=== PATIENT | female | born 1995 | race Caucasian/White ===

== ENCOUNTER → 2020-09-30 | Outpatient (CLI) | payer OTHER, MEDICAID ==
--- NOTE | 2020-09-30 17:19 | Diagnostic Imaging Report ---
INDICATION: Survey. TECHNIQUE: Multiple real-time grayscale images were obtained over the gravid uterus. COMPARISON: None FINDINGS: There is a single live intrauterine of 20 weeks 4 days +/- 2 weeks. Cardiac activity and motion are seen. No abnormality is seen at this time. Biometrical measurements are as follows: Biparietal 4.83 cm, age 20 weeks 5 days. Head circumference 18.42 cm, age 20 weeks 6 days. Abdominal circumference 15.74 cm, age 21 weeks 0 days. Femur length 3.08 cm, age 19 weeks 4 days. Sonographic estimate age: 20 weeks 4 days. Sonographic estimated date of delivery: 02/13/2021. Estimated Weight: 347 gm (+/- 51 gm). LMP percentile: 40%. heart rate: 134 beats per minute. number: 1 of 1. IMPRESSION: Current cervical length is 5.6 cm. The cervix is closed. Dictated by: Dictated on workstation # [id number]
== END ==
LOC: RAD 15:00
PROVIDERS: ATTEND Obstetrics & Gynecology
DX: Z34.92 Encounter for supervision of normal pregnancy, unspecified, second trimester (principal); Z3A.20 20 weeks gestation of pregnancy
CPT/HCPCS: 76805

== ENCOUNTER → 2020-10-15 | Outpatient (CLI) | payer OTHER, MEDICAID | LOC: CARD 11:45 | PROVIDERS: ATTEND Obstetrics & Gynecology | DX: R00.2 Palpitations (principal); R55 Syncope and collapse | CPT/HCPCS: 93005; 93225; 93226 ==

== ENCOUNTER 2021-01-13 15:30 | Outpatient (CLI) | payer OTHER, MEDICAID ==
[~2021-01-13] VITALS: Ht 167.7 cm; Wt 101.6 kg
[2021-01-13 15:54] VITALS: BP 132/82
[2021-01-13 15:54] LABS: BILIRUBIN,URINE NEGATIVE (NEGATIVE); CLARITY,URINE CLEAR; COLOR,URINE YELLOW; GLUCOSE, URINE (UA) TRACE (NEGATIVE); KETONES,URINE NEGATIVE (NEGATIVE); LEUKOCYTE ESTERASE ,URINE TRACE (NEGATIVE); NITRITE,URINE NEGATIVE (NEGATIVE); PROTEIN,URINE TRACE (NEGATIVE)
[2021-01-13 16:03] LABS: BACTERIA,URINE MODERATE /HPF; YEAST,URINE FEW /HPF
[2021-01-13] MEDS ORDERED: DOXY25TA56 PO (16:07)
[2021-01-13] MEDS ORDERED: VILA20TA PO (16:07)
--- NOTE | 2021-01-14 08:19 | Physician Query-Final Dx ---
[facility] 01/14/21 0819: Clinic Account Progress/Dx Physician Query: Please give diagnosis Please include # weeks gestation Date of Service Jan 13, 2021 at 15:30 JEWEL KOEHLER DO 01/14/21 0840: Clinic Account Progress/Dx DIAGNOSIS: Diagnosis 35 week IUP Back Pain and hip pain [facility] Jan 14, 2021 08:19 JEWEL KOEHLER DO Jan 14, 2021 08:40
== END 2021-01-13 17:03 | disposition home or self-care (01) ==
LOC: WSo 15:30
PROVIDERS: ATTEND Obstetrics & Gynecology
DX: O26.893 Other specified pregnancy related conditions, third trimester (principal); M54.9 Dorsalgia, unspecified; M25.559 Pain in unspecified hip; Z3A.35 35 weeks gestation of pregnancy
CPT/HCPCS: 81000; G0463; 99213

== ENCOUNTER → 2021-01-16 | Outpatient (CLI) | payer OTHER, MEDICAID ==
[~2021-01-16] MED LIST: DOXY25TA56 PO; VILA20TA PO
--- NOTE | 2021-01-16 17:42 | Diagnostic Imaging Report ---
INDICATION: Excessive growth. COMPARISON: 09/30/2020. TECHNIQUE: Multiple real-time grayscale images were obtained over the gravid uterus. FINDINGS: Single live intrauterine is identified. heart rate is documented at 138 bpm. Based on size measurements from today's exam, estimated weight is 3.5 kg +/- 518 g (7 pounds, 13 ounces). This is consistent with the 98th percentile. Please see below for additional measurements and details. Biometrical measurements are as follows: Biparietal 9.23 cm, age 37 weeks 4 days. Head circumference 34.36 cm, age 39 weeks 5 days. Abdominal circumference 35.29 cm, age 39 weeks 2 days. Femur length 7.28 cm, age 37 weeks 2 days. Sonographic estimate age: 38 weeks 4 days. Sonographic estimated date of delivery: 01/26/2021. Estimated Weight: 3544 gm (+/- 518 gm). LMP percentile: 98%. heart rate: 138 beats per minute. number: 1 of 1. IMPRESSION: Size and dates with estimated weight as described above. Again, this results in estimated 98 percentile for growth. Dictated by: Dictated on workstation # [id number]
== END ==
LOC: RAD 14:53
PROVIDERS: ATTEND Obstetrics & Gynecology
DX: O36.63X1 Maternal care for excessive fetal growth, third trimester, fetus 1 (principal); Z3A.38 38 weeks gestation of pregnancy
CPT/HCPCS: 76816

== ENCOUNTER → 2021-01-23 | Outpatient (CLI) | payer OTHER, MEDICAID | LOC: LABNPT 11:34 | PROVIDERS: ATTEND Obstetrics & Gynecology | DX: R03.0 Elevated blood-pressure reading, without diagnosis of hypertension (principal) | CPT/HCPCS: 82570; 84156 ==

== ENCOUNTER 2021-02-01 14:08 | Outpatient (CLI) | payer OTHER, MEDICAID ==
[~2021-02-01] VITALS: Ht 167.7 cm; Wt 103.7 kg
[2021-02-01] VITALS (12 sets, daily range): BP systolic 117–133; BP diastolic 72–85
[2021-02-01 15:32] LABS: BILIRUBIN,URINE NEGATIVE (NEGATIVE); CLARITY,URINE SL CLOUDY; COLOR,URINE YELLOW; GLUCOSE, URINE (UA) NEGATIVE (NEGATIVE); KETONES,URINE NEGATIVE (NEGATIVE); LEUKOCYTE ESTERASE ,URINE NEGATIVE (NEGATIVE); NITRITE,URINE NEGATIVE (NEGATIVE); PH,URINE 6.5 (5-9); PROTEIN,URINE NEGATIVE (NEGATIVE)
--- NOTE | 2021-02-01 15:33 | OB Triage Report ---
Standard Progress Note Progress Notes/Assess & Plan Date Seen by a Provider: Feb 01, 2021 Time Seen by a Provider: 15:33 Expected Date of Delivery: Feb 14, 2021 Gestational Age in Weeks: 38 Gestational Age in Days: 1 LMP/MASOOD Comment: MASOOD: 02/14/2021 Progress/Assessment & Plan HPI: 25 yo with IUP at 38w1 day who presents for reported mildly elevated BP at home with SBP in 140s. Notes mild 1/10 MEJÍA x3 days. Took Tylenol once without notable improvement in MEJÍA. Denies CP, SOB, palpitations or vision abnormalities, although did have episode of spots in vision earlier in the past week. She denies contractions, LOF, vaginal bleeding, RUQ abdominal pain. She is feeling good movements. Her care is with Dr. Snow, and her is complicated by hx of gHTN in G1. PreE labs were obtained in clinic on 01/23/21 due pt report of MEJÍA and spots in vision, but were all wnl. BPs in clinic have been in the normal range. PE: Vital Signs 02/01/21 02/01/21 15:00 17:17 Temp 36.6 Pulse 90 Resp 18 B/P (MAP) 119/72 (88) Pulse Ox 98 O2 Delivery Room Air Gen: in no apparent distress, resting comfortably in bed Heart: normal rate and peripheral perfusion, no edema Resp: normal effort, symmetric chest rise FHR: 150bpm, mod abdoul, + accels, - decels Maria Antonia: No contractions Labs Laboratory Tests Test 02/01/21 15:18 Range/Units Urine Color YELLOW Urine Clarity SL CLOUDY Urine pH 6.5 5-9 Urine Specific [place] 1.015 L 1.016-1.022 Urine Protein 10 6-12 MG/DL Urine Glucose (UA) NEGATIVE NEGATIVE Urine Ketones NEGATIVE NEGATIVE Urine Nitrite NEGATIVE NEGATIVE Urine Bilirubin NEGATIVE NEGATIVE Urine Urobilinogen 0.2 < = 1.0 MG/DL Urine Leukocyte Esterase NEGATIVE NEGATIVE Urine RBC (Auto) NEGATIVE NEGATIVE Urine RBC NONE /HPF Urine WBC NONE /HPF Urine Squamous Epithelial Cells 2-5 /HPF Urine Crystals NONE /LPF Urine Bacteria NEGATIVE /HPF Urine Casts NONE /LPF Urine Mucus NEGATIVE /LPF Urine Culture Indicated NO Urine Creatinine 66 30-125 MG/DL Urine Protein/Creatinine Ratio 0.15 A/P: 25 yo with IUP at 38w1d who presents for PIH evaluation secondary to reported elevated home BP and MEJÍA - BPs cycled in triage x3hr wnl - UPC wnl - MEJÍA resolved with PO Tylenol - Evaluation negative for PIH at this time. reassurance provided - Discharge home. Home BPs check instructions provided - Continue outpatient follow-up as scheduled Diagnosis/Problems Diagnosis/Problems (1) 38 weeks gestation of Status: Acute SHIRA PERDUE MD Feb 01, 2021 15:33
[2021-02-01] MEDS ORDERED: PNV11TAB5 PO (15:40)
[2021-02-01] MEDS ORDERED: FERR-84 PO (15:40)
[2021-02-01] MEDS ORDERED: LORA10CA PO (15:40)
[2021-02-01] MEDS ORDERED: ACETAMINOPHEN 500 MG TAB (TYLENOL) PO ONE (15:45)
[2021-02-01 15:47] LABS: BACTERIA,URINE NEGATIVE /HPF
[2021-02-01] MEDS ORDERED: ACETAMINOPHEN 500 MG TAB (TYLENOL) ONE (15:54)
== END 2021-02-01 17:41 | disposition home or self-care (01) ==
LOC: WSo 14:08 → LDRP 14:09 → WSo 17:41
PROVIDERS: ATTEND Obstetrics & Gynecology
DX: O13.3 Gestational [pregnancy-induced] hypertension without significant proteinuria, third trimester (principal); Z3A.38 38 weeks gestation of pregnancy
CPT/HCPCS: 81000; 82570; 84156; G0463; 99214

== ENCOUNTER 2021-02-11 07:29 | Inpatient (IN) | payer OTHER, MEDICAID ==
[2021-02-11] VITALS (52 sets, daily range): BP systolic 76–163; BP diastolic 45–678
[~2021-02-11 07:29] MED LIST changes: +FERR-84 PO; +LORA10CA PO; +PNV11TAB5 PO
[2021-02-11] MEDS ORDERED: MINERAL OIL CONCENTRATE 99.9% 15 ML UDC TOP PRN (07:45)
[2021-02-11] MEDS ORDERED: LIDOCAINE/EPI 2% 1:200,00 (XYLOCAINE) 20 ML VIAL INJ PRN (07:45)
[2021-02-11 08:22] LABS: BASOPHILS % (AUTO) 1 % (0-10); EOSINOPHILS # (AUTO) 0.1 10^3/uL (0.0-0.3); EOSINOPHILS % (AUTO) 1 % (0-10); HEMATOCRIT 30 % (35-52); HEMOGLOBIN 9.4 g/dL (11.5-16.0); LYMPHOCYTES % (AUTO) 25 % (12-44); MEAN CORPUSCULAR HEMOGLOBIN 23 pg (25-34); MEAN CORPUSCULAR HGB CONC 31 g/dL (32-36); MEAN CORPUSCULAR VOLUME 75 fL (80-99); MEAN PLATELET VOLUME 10.4 fL (9.0-12.2); MONOCYTES # (AUTO) 0.5 10^3/uL (0.0-1.0); MONOCYTES % (AUTO) 7 % (0-12); NEUTROPHILS # (AUTO) 5.4 10^3/uL (1.8-7.8); NEUTROPHILS % (AUTO) 67 % (42-75); PLATELET COUNT 338 10^3/uL (130-400); WHITE BLOOD COUNT 8.1 10^3/uL (4.3-11.0)
[2021-02-11] MEDS ORDERED: AMPICILLIN FOR IV USE 2,000 MG in WATER (STERILE) FOR INJECTION 14.8 ML IV SCH (08:24)
[2021-02-11] MEDS ORDERED: WATER (STERILE) FOR INJECTION 20 ML ONE (08:30)
[2021-02-11] MEDS ORDERED: AMPICILLIN 2,000 MG/14.8 ML (IV USE) ONE (08:30)
[2021-02-11] MEDS: D5 LR IV SOLUTION 1,000 ML IV SCH ×3 (08:53→23:00)
[2021-02-11 09:00] LABS: BILIRUBIN,URINE NEGATIVE (NEGATIVE); CLARITY,URINE CLEAR; COLOR,URINE YELLOW; GLUCOSE, URINE (UA) NEGATIVE (NEGATIVE); KETONES,URINE NEGATIVE (NEGATIVE); LEUKOCYTE ESTERASE ,URINE 1+ (NEGATIVE); NITRITE,URINE NEGATIVE (NEGATIVE); PH,URINE 6.5 (5-9); PROTEIN,URINE NEGATIVE (NEGATIVE)
[2021-02-11 09:15] LABS: RBC,URINE RARE /HPF
[2021-02-11 09:16] LABS: BACTERIA,URINE FEW /HPF; YEAST,URINE FEW /HPF
[2021-02-11] MEDS ORDERED: ACETAMINOPHEN 500 MG TAB (TYLENOL) PO PRN (09:30)
[2021-02-11] MEDS ORDERED: fentaNYL INJ 100 MCG/2 ML AMP IVP PRN (12:45)
[2021-02-11] MEDS ORDERED: OXYTOCIN PRE-MIX DRIP 500 ML IV SCH (12:45)
[2021-02-11] MEDS: AMPICILLIN FOR IV USE 1,000 MG in WATER (STERILE) FOR INJECTION 7.4 ML IV SCH ×3 (13:08→20:32)
[2021-02-11] MEDS ORDERED: fentaNYL 2 mcg/ml BUPIVA 0.125 100 ML ONE (13:30)
[2021-02-11] MEDS ORDERED: BUPIVACAINE 0.25% 30 ML (SENSORCAINE) VIAL ONE (13:39)
[2021-02-11] MEDS ORDERED: fentaNYL INJ 100 MCG/2 ML AMP ONE (13:40)
[2021-02-11] MEDS ORDERED: EPIDURAL (fentaNYL 2 MCG/ML BUPIVA 0.125%)100 ML BAG EPI PRN (15:15)
[2021-02-11] MEDS ORDERED: METOCLOPRAMIDE INJ 10 MG/2 ML (REGLAN) IV PRN (15:15)
[2021-02-11] MEDS ORDERED: LACTATED RINGERS 1,000 ML IV SCH (15:15)
[2021-02-11] MEDS ORDERED: NALOXONE 0.4 MG/ML 1 ML (NARCAN) VIAL IV PRN ×3 (15:15→17:30)
[2021-02-11] MEDS ORDERED: ONDANSETRON 4 MG/2 ML (SDV) Z0FRAN IV PRN (15:15)
[2021-02-11] MEDS ORDERED: fentaNYL 2 mcg/ml BUPIVA 0.125 100 ML EPI PRN (15:15)
[2021-02-11] MEDS ORDERED: diphenhydrAMINE 50 MG/ML INJ (BENADRYL) IV PRN (15:15)
[2021-02-11] MEDS ORDERED: LIDOCAINE/EPI 2% 1:200,00 (XYLOCAINE) 10 ML VIAL ONE (16:37)
--- NOTE | 2021-02-11 17:24 | History & Physical-OB ---
OB - Chief Complaint & HPI Date/Time Date of Admission: Date of Admission: Feb 11, 2021 at 07:29 Date seen by a Provider: Feb 11, 2021 Time Seen by a Provider: 08:00 Chief Complaint/History OB-Reason for Admission/Chief: Medical Complication (elevated blood pressures without preeclampsia) Hx : 3 Hx Para: 2 Expected Date of Delivery: Feb 14, 2022 Gestational Age in Weeks: 39 Gestational Age in Days: 4 Indication for induction: medical complication Other reason for admission: Patient has had labile blood pressure, but she has had increase in headaches, so plan induction. Has history of spinal headache after epidural requiring blood patch so she is unsure if she wishes to have another epidural Good FM, no LOF, no VB no visual changes, no abdominal pain Admission Nurse Assessment Rev: Yes History of Labs A-/- HepBSag - Hep C - HIV - VDRL NR Rub I GBS + Allergies and Home Medications Allergies Coded Allergies: sulfamethoxazole (Verified Allergy, Unknown, 01/13/21) trimethoprim (Verified Allergy, Unknown, 01/13/21) Patient Home Medication List Home Medication List Reviewed: Yes Doxylamine Succinate (Unisom) 25 Mg Tablet, 25 MG PO HS, (Reported) Entered as Reported by: JAMAL GRIFFITH on 01/13/21 160 Ferrous Sulfate (Iron) 325 Mg Tablet, 325 MG PO UD, (Reported) Entered as Reported by: ALAN ARAIZA on 02/01/211539 Loratadine (Claritin) 10 Mg Capsule, 10 MG PO DAILY, (Reported) Entered as Reported by: ALAN ARAIZA on 02/01/21 154 Umz373/FA/Omega3/Dha/Fish Oil ( Gummies) 1 Each Tab.chew, 2 EACH PO DAILY, (Reported) Entered as Reported by: ALAN ARAIZA on 02/01/21 154 Vilazodone Hydrochloride (Viibryd) 20 Mg Tablet, 20 MG PO DAILY, (Reported) Entered as Reported by: JAMAL GRIFFITH on 01/13/21 160 OB - History Hx of Present Ultrasounds: Normal mid trimester US Obstetrical Complications: Gestational Hypertension Medical Complications: None Information Pre-Hospital Medication Admins: viibryd Induced Hypertension: Yes Maternal Gestational Diabetes: No Hemorrhage: No Obstetrical History Hx : 3 Hx Para: 2 Hx # Term Pregnancies: 2 Hx # Pregnancies: 0 Number of Living Children: 2 Hx Termination: No Hx Multiple Gestation: No Hx Ectopic : No Hx Stillbirth: No Hx Complication: No Hx Induced Hypertens: Yes Hx Maternal Gestational Diabet: No Hx Hemorrhage: No Delivery History Hx Dystocia: No Hx Forceps Assisted Delivery: No Hx Vacuum Extraction Assisted: No Hx Placenta Abnormality: No Hx Distress: No Hx Large For Gestational Age I: Yes Hx Small for Gestational Age I: No Hx Section: No Hx Vaginal Delivery Post C-Sec: No Hx Blood Disorders: No Adverse Rxn to Tranfusion: No Patient Past Medical History NC Social History/Family History Alcohol Use: Denies Use Recreational Drug Use: No Smoking Cessation: Never smoker 2nd Hand Smoke Exposure: No Immunizations Hepatitis A: No Hepatitis B: No Tetanus Booster (TDap): Less than 5yrs (11/2020) Rubella: immune RPR/VDRL: Negative GBS Status: Positive HBsAG: Negative OB - Admission Exam Physical Exam Vitals: Vital Signs 02/11/21 02/11/21 02/11/21 07:57 10:15 10:30 Temp 37.0 Pulse 105 Resp 18 B/P (MAP) 120/76 (91) Pulse Ox 99 O2 Delivery Room Air HEENT: NCAT Heart: Rhythm Normal Lungs: Clear Abdomen: Gravid Extremities: Edema Reflexes: Normal Cervical Dilatation: 2cm Effacement: 50% Station: -3 Membranes: Intact Heart Rate: 140's Accelerations: Accelerations Present Decelerations: No Decelerations Short Term Variability: Present Product Marketing Consultant Variability: Average (6-25) Contractions on Admission: 6-10 Minutes Apart Intensity: Mild Labs Laboratory Tests Test 02/11/21 08:10 02/11/21 08:43 Range/Units White Blood Count 8.1 4.3-11.0 10^3/uL Red Blood Count 4.04 3.80-5.11 10^6/uL Hemoglobin 9.4 L 11.5-16.0 g/dL Hematocrit 30 L 35-52 % Mean Corpuscular Volume 75 L 80-99 fL Mean Corpuscular Hemoglobin 23 L 25-34 pg Mean Corpuscular Hemoglobin Concent 31 L 32-36 g/dL Red Cell Distribution Width 17.0 H 10.0-14.5 % Platelet Count 338 130-400 10^3/uL Mean Platelet Volume 10.4 9.0-12.2 fL Immature Granulocyte % (Auto) 0 % Neutrophils (%) (Auto) 67 42-75 % Lymphocytes (%) (Auto) 25 12-44 % Monocytes (%) (Auto) 7 0-12 % Eosinophils (%) (Auto) 1 0-10 % Basophils (%) (Auto) 1 0-10 % Neutrophils # (Auto) 5.4 1.8-7.8 10^3/uL Lymphocytes # (Auto) 2.0 1.0-4.0 10^3/uL Monocytes # (Auto) 0.5 0.0-1.0 10^3/uL Eosinophils # (Auto) 0.1 0.0-0.3 10^3/uL Basophils # (Auto) 0.0 0.0-0.1 10^3/uL Immature Granulocyte # (Auto) 0.0 0.0-0.1 10^3/uL Urine Color YELLOW Urine Clarity CLEAR Urine pH 6.5 5-9 Urine Specific [place] 1.020 1.016-1.022 Urine Protein NEGATIVE NEGATIVE Urine Glucose (UA) NEGATIVE NEGATIVE Urine Ketones NEGATIVE NEGATIVE Urine Nitrite NEGATIVE NEGATIVE Urine Bilirubin NEGATIVE NEGATIVE Urine Urobilinogen 0.2 < = 1.0 MG/DL Urine Leukocyte Esterase 1+ H NEGATIVE Urine RBC (Auto) NEGATIVE NEGATIVE Urine RBC RARE /HPF Urine WBC 5-10 H /HPF Urine Squamous Epithelial Cells 2-5 /HPF Urine Crystals NONE /LPF Urine Bacteria FEW H /HPF Urine Casts NONE /LPF Urine Mucus NEGATIVE /LPF Urine Yeast FEW H /HPF Urine Culture Indicated YES OB - Assessment/Plan/Diagnosis Assessment Assessment: group B positive strep, induction of labor Admission Dx 39 week gestation Gestational hypertension Rh - GBS + Admission Status: Inpatient Order (span 2 midnights) Reason for Inpatient Admission: labor Plan Induction Method: per Misoprostol Protocol Other Plan ampicillin for GBS prophylaxis Will arom after 2nd dose of antibiotics REBA JAMA DO Feb 11, 2021 17:24
--- NOTE | 2021-02-11 17:27 | OB Labor & Delivery Record ---
Vag Delivery Note Vag Delivery Note Date of Delivery: 02/11/21 Preoperative Diagnosis: Nora Grubbs is a (25 /Para 3 /2 ,Gestational Age 39 1/7 weeks for induction, elevated blood pressures, GBS + Postoperative Diagnosis: Same Surgeon: REBA JAMA Anesthesia: epidural Delivery Type: Findings: Viable male , apgars 8/9, weight 9#3ounces Lacerations: 1st degree Intact placenta with 3 vessel cord. Nuchal cord x 2 delivered through. No body cord or shoulder dystocia Estimated Blood Loss: 225 ml Complications: None Condition: Stable Description of Procedure: The patient is a 25 year old female who presented for induction of labor. She was admitted and informed consent was obtained. Her labor course was remarkable for ampicillin prophylaxis (2 doses given), misoprostol x 1, AROM and pitocin. She progressed to complete dilatation and began to push. She was then set up for delivery. The infant's head was delivered atraumatically in the LOP position. The shoulders and remainder of the infant's body were then delivered without difficulty. Upon delivery, the head was held below the level of the perineum and the mouth and nares were bulb suctioned. The cord was doubly clamped and cut and the was handed off to the pediatric staff. An intact placenta with 3-vessel cord delivered via Luis and there was found to be minimal bleeding.~ Vigorous fundal massage was performed and the fundus was found to be firm. IV oxytocin was given. Examination of the vagina and perineum revealed a 1st laceration repaired in the usual fashion with 3-0 vicryl suture. Following the repair, sponge, instrument and needle counts were correct. Mom and baby were both in stable condition in the labor suite. Vitals - Labs Vital Signs - I&O Vital Signs Date Time Temp Pulse Resp B/P (MAP) Pulse Ox O2 Delivery O2 Flow Rate FiO2 02/11/21 10:30 105 18 120/76 (91) 02/11/21 10:15 100 18 132/77 (95) 99 02/11/21 10:00 96 18 111/63 (79) 100 02/11/21 09:45 101 18 110/65 (80) 02/11/21 09:30 103 18 108/65 (79) 99 02/11/21 09:15 100 18 116/69 (85) 99 02/11/21 07:57 37.0 115 18 99 Room Air Labs Laboratory Tests 02/11/21 08:10: White Blood Count 8.1, Red Blood Count 4.04, Hemoglobin 9.4L, Hematocrit 30L, Mean Corpuscular Volume 75L, Mean Corpuscular Hemoglobin 23L, Mean Corpuscular Hemoglobin Concent 31L, Red Cell Distribution Width 17.0H, Platelet Count 338, Mean Platelet Volume 10.4, Immature Granulocyte % (Auto) 0, Neutrophils (%) (Auto) 67, Lymphocytes (%) (Auto) 25, Monocytes (%) (Auto) 7, Eosinophils (%) (Auto) 1, Basophils (%) (Auto) 1, Neutrophils # (Auto) 5.4, Lymphocytes # (Auto) 2.0, Monocytes # (Auto) 0.5, Eosinophils # (Auto) 0.1, Basophils # (Auto) 0.0, Immature Granulocyte # (Auto) 0.0 02/11/21 08:43: Urine Color YELLOW, Urine Clarity CLEAR, Urine pH 6.5, Urine Specific [place] 1.020, Urine Protein NEGATIVE, Urine Glucose (UA) NEGATIVE, Urine Ketones NEGATIVE, Urine Nitrite NEGATIVE, Urine Bilirubin NEGATIVE, Urine Urobilinogen 0.2, Urine Leukocyte Esterase 1+H, Urine RBC (Auto) NEGATIVE, Urine RBC RARE, Urine WBC 5-10H, Urine Squamous Epithelial Cells 2-5, Urine Crystals NONE, Urine Bacteria FEWH, Urine Casts NONE, Urine Mucus NEGATIVE, Urine Yeast FEWH, Urine Culture Indicated YES REBA JAMA DO Feb 11, 2021 17:27
[2021-02-11] MEDS ORDERED: BENZOCAINE/MENTHOL (DERMOPLAST) 56 ML CAN TP PRN (17:30)
[2021-02-11] MEDS ORDERED: DIBUCAINE 1% OINTMENT 30 GM TUBE TOP PRN (17:30)
[2021-02-11] MEDS ORDERED: MEASLES,MUMPS,RUBELLA 1 EA INJ SQ ONE (17:30)
[2021-02-11] MEDS ORDERED: WITCH HAZEL(TUCKS) 40 EA JAR TOP PRN (17:30)
[2021-02-11] MEDS ORDERED: TETANUS,DIPTH,PERTUSS P/F (BOOSTRIX) 0.5 ML VIAL IM ONE (17:30)
[2021-02-11] MEDS: OXYTOCIN PRE-MIX DRIP 500 ML IV SCH ×2 (17:40→20:12)
[2021-02-11] MEDS: CATHETER FLUSH 10 ML SYR IV SCH ×3 (20:11→22:31)
[2021-02-11] MEDS: DOCUSATE SODIUM 100 MG (COLACE) CAP PO SCH (20:21)
[2021-02-11] MEDS: ACETAMINOPHEN 500 MG TAB (TYLENOL) PO SCH (20:21)
[2021-02-11] MEDS: IBUPROFEN 600 MG (MOTRIN) TAB PO SCH (20:22)
[2021-02-12] MEDS: AMPICILLIN FOR IV USE 1,000 MG in WATER (STERILE) FOR INJECTION 7.4 ML IV SCH ×2 (00:57→03:48)
[2021-02-12] MEDS: IBUPROFEN 600 MG (MOTRIN) TAB PO SCH ×5 (02:03→19:58)
[2021-02-12] MEDS: ACETAMINOPHEN 500 MG TAB (TYLENOL) PO SCH ×5 (02:03→20:42)
[2021-02-12 02:11] VITALS: BP 115/62
[2021-02-12 05:55] LABS: BASOPHILS % (AUTO) 0 % (0-10); EOSINOPHILS # (AUTO) 0.1 10^3/uL (0.0-0.3); EOSINOPHILS % (AUTO) 1 % (0-10); HEMATOCRIT 27 % (35-52); HEMOGLOBIN 8.1 g/dL (11.5-16.0); LYMPHOCYTES % (AUTO) 23 % (12-44); MEAN CORPUSCULAR HEMOGLOBIN 23 pg (25-34); MEAN CORPUSCULAR HGB CONC 30 g/dL (32-36); MEAN CORPUSCULAR VOLUME 76 fL (80-99); MEAN PLATELET VOLUME 10.3 fL (9.0-12.2); MONOCYTES # (AUTO) 0.7 10^3/uL (0.0-1.0); MONOCYTES % (AUTO) 8 % (0-12); NEUTROPHILS # (AUTO) 5.9 10^3/uL (1.8-7.8); NEUTROPHILS % (AUTO) 67 % (42-75); PLATELET COUNT 267 10^3/uL (130-400); WHITE BLOOD COUNT 8.8 10^3/uL (4.3-11.0)
[2021-02-12] MEDS: CATHETER FLUSH 10 ML SYR IV SCH ×2 (06:11)
[2021-02-12] MEDS: D5 LR IV SOLUTION 1,000 ML IV SCH (07:45)
[2021-02-12 08:28] VITALS: BP 114/77
[2021-02-12] MEDS: PRENATAL VITAMIN 1 EA TAB PO SCH (08:36)
[2021-02-12] MEDS: DOCUSATE SODIUM 100 MG (COLACE) CAP PO SCH ×2 (08:36→19:58)
[2021-02-12] MEDS: FERROUS SULF 325 MG (IRON) TAB PO SCH (08:36)
--- NOTE | 2021-02-12 11:34 | Anesthesia-Regional Post-Op ---
Regional Patient Condition Mental Status: Alert, Oriented x3 Circulation: Same as Pre-Op Headache: Absent Sensation: Full Recovery Motor Block: Absent Post Op Complications Complications None Follow Up Care/Instructions Patient Instructions None needed. Anesthesia/Patient Condition Patient is doing well, no complaints, stable vital signs, no apparent adverse anesthesia problems. No complications reported per nursing. D/C home per [facility] Criteria: No BAY ALVAREZ CRNA Feb 12, 2021 11:34
[2021-02-12 13:36] VITALS: BP 128/62
--- NOTE | 2021-02-12 14:26 | Postpartum Progress Note ---
Note Note Day # 1 Subjective: Reports soreness all over. Otherwise feeling well. Ambulating, voiding. Tolerating a regular diet without nausea or vomiting. Normal lochia. Pain is well controlled with oral pain medications. Denies CP, SOB, lighth eadedness/dizziness, LE pain/swelling. Objective: Vital Signs 02/12/21 13:36 Temp 36.8 Pulse 100 Resp 18 B/P (MAP) 128/62 (84) Pulse Ox 98 O2 Delivery Room Air Physical Exam: General - Alert and oriented, no apparent distress Abdomen - Soft, appropriately tender to palpation, non-distended, fundus firm at umbilicus Extremities - no edema, negative Mo's bilaterally Assessment: Post- day # 1, status post spontaneous vaginal delivery. Recovering well, hemodynamically stable Plan: Routine care Flexeril PRN for soreness Tylenol/Ibuprofen for pain management. Encourage breast feeding. Encourage ambulation. Ferrous sulfate supplementation. Plan for discharge tomorrow if no new concerns develop Vitals - Labs Vital Signs - I&O Vital Signs Date Time Temp Pulse Resp B/P (MAP) Pulse Ox O2 Delivery O2 Flow Rate FiO2 02/12/21 13:36 36.8 100 18 128/62 (84) 98 Room Air 02/12/21 08:28 36.8 100 16 114/77 (89) 100 Room Air 02/12/21 02:11 36.4 86 18 115/62 (79) 02/11/21 20:07 94 18 117/76 (90) 02/11/21 18:37 93 18 121/65 (83) 02/11/21 18:22 90 18 116/69 (85) 02/11/21 18:07 89 18 117/71 (86) 02/11/21 17:52 109 18 111/68 (82) 02/11/21 17:37 108 18 107/54 (71) 02/11/21 17:22 100 18 127/72 (90) 02/11/21 17:08 127 163/60 (94) 02/11/21 16:53 122 18 127/79 (95) 02/11/21 16:39 105 18 113/64 (80) 02/11/21 16:25 97 18 120/67 (84) 02/11/21 16:07 127 102/65 (77) 02/11/21 15:55 120 18 99/57 (71) 02/11/21 15:40 86 18 123/75 (91) 02/11/21 15:25 89 125/65 (85) 02/11/21 15:06 36.4 02/11/21 15:00 86 18 129/68 (88) 02/11/21 14:45 83 18 129/63 (85) 96 02/11/21 14:40 90 18 135/70 (91) 97 02/11/21 14:38 107 18 136/74 (94) 02/11/21 14:37 89 18 02/11/21 14:35 96 18 140/68 (92) 98 02/11/21 14:32 97 18 138/76 (96) 02/11/21 14:30 82 18 106/73 (84) 97 02/11/21 14:27 66 18 86/54 (65) 02/11/21 14:26 76 18 76/45 (55) 98 I & O 02/12/21 07:00 Intake Total 3614.8 ml Balance 3614.8 ml Labs Laboratory Tests 02/12/21 05:32: White Blood Count 8.8, Red Blood Count 3.55L, Hemoglobin 8.1L, Hematocrit 27L, Mean Corpuscular Volume 76L, Mean Corpuscular Hemoglobin 23L, Mean Corpuscular Hemoglobin Concent 30L, Red Cell Distribution Width 17.0H, Platelet Count 267, Mean Platelet Volume 10.3, Immature Granulocyte % (Auto) 1, Neutrophils (%) (Auto) 67, Lymphocytes (%) (Auto) 23, Monocytes (%) (Auto) 8, Eosinophils (%) (Auto) 1, Basophils (%) (Auto) 0, Neutrophils # (Auto) 5.9, Lymphocytes # (Auto) 2.0, Monocytes # (Auto) 0.7, Eosinophils # (Auto) 0.1, Basophils # (Auto) 0.0, Immature Granulocyte # (Auto) 0.1 Microbiology 02/11/21 Urine Culture - Final, Complete Gram Pos Mixed Bacterial Vilma SHIRA PERDUE MD Feb 12, 2021 14:25
[2021-02-12] MEDS: CYCLOBENZAPRINE 10 MG (FLEXERIL) TAB PO PRN ×2 (14:34→21:37)
[2021-02-12 17:16] VITALS: BP 135/72
[2021-02-12 21:40] VITALS: BP 127/68
[2021-02-13] MEDS: IBUPROFEN 600 MG (MOTRIN) TAB PO SCH ×2 (02:11→08:32)
[2021-02-13] MEDS: ACETAMINOPHEN 500 MG TAB (TYLENOL) PO SCH ×2 (02:11→08:34)
[2021-02-13] MEDS: CYCLOBENZAPRINE 10 MG (FLEXERIL) TAB PO PRN (02:11)
[2021-02-13 04:08] VITALS: BP 115/66
[2021-02-13 08:30] VITALS: BP 117/61
[2021-02-13] MEDS: FERROUS SULF 325 MG (IRON) TAB PO SCH (08:34)
[2021-02-13] MEDS: PRENATAL VITAMIN 1 EA TAB PO SCH (08:34)
[2021-02-13] MEDS: DOCUSATE SODIUM 100 MG (COLACE) CAP PO SCH (08:34)
[2021-02-13] MEDS ORDERED: ACET-93 PO (10:22)
[2021-02-13] MEDS ORDERED: IBUP-844 PO (10:22)
--- NOTE | 2021-02-13 10:23 | Discharge Inst-Women's Service ---
Discharge Inst-Women's Serv Depart Medication/Instructions New, Converted or Re-Newed RX: Transmitted to Pharmacy Final Diagnosis vaginal delivery anemia, iron deficient and acute blood loss Problems Reviewed?: Yes Consults/Follow Up Additional Follow Up: Yes (6 weeks) Activity Activity: Activity as Tolerated Driving Instructions: You May Drive NO SMOKING: NO SMOKING Nothing Inside Vagina: No Douching, No [place], No Tampons Diet Discharge Diet: No Restrictions Symptoms to Report to : Bleeding Excessive, Pain Increased, Fever Over 101 Degrees F, Vaginal Bleeding Increase, Cramps in Feet or Legs, Vaginal Discharge Foul For Any Problems or Questions: Contact Your Physician REBA JAMA DO Feb 13, 2021 10:23
== END 2021-02-13 13:05 | disposition home or self-care (01) | DRG 807 ==
LOC: LDRP 07:29
PROVIDERS: ADMIT Obstetrics & Gynecology; ATTEND Obstetrics & Gynecology
PROC: 10E0XZZ Delivery of Products of Conception, External Approach (ICD-10-PCS; principal; 2021-02-11)
PROC: 0HQ9XZZ Repair Perineum Skin, External Approach (ICD-10-PCS; 2021-02-11)
PROC: 3E0DXGC Introduction of Other Therapeutic Substance into Mouth and Pharynx, External Approach (ICD-10-PCS; 2021-02-11)
DX: O13.4 Gestational [pregnancy-induced] hypertension without significant proteinuria, complicating childbirth (principal); Z37.0 Single live birth; O99.824 Streptococcus B carrier state complicating childbirth; Z3A.39 39 weeks gestation of pregnancy; O26.893 Other specified pregnancy related conditions, third trimester; Z67.11 Type A blood, Rh negative; O70.0 First degree perineal laceration during delivery; O69.81X0 Labor and delivery complicated by cord around neck, without compression, not applicable or unspecified; Z88.2 Allergy status to sulfonamides
CPT/HCPCS: 36415; 81000; 85025; 86850; 86900; 86901; 87088